=== PATIENT | male | born 1985 | race Caucasian/White ===

== ENCOUNTER 2023-07-01 09:17 | Emergency (ER) | payer BC, SELFPAY ==
[2023-07-01 09:30] VITALS: BP 134/90; PULSE 68; RESP 18; TEMP 36.6; O2SAT 100; BMI 23.6
[2023-07-01 09:52] VITALS: BP 134/90; PULSE 68; RESP 18; TEMP 36.6; O2SAT 100
--- NOTE | 2023-07-01 09:53 | EXP.UTC ---
Discharge Plan Disposition Patient Disposition: Home, Self-Care Condition: Good Prescriptions Prescriptions: New doxycycline hyclate 100 mg capsule 100 mg PO Q12H 10 Days Qty: 20 0RF Referrals Follow up/Referrals: Provider,Referral, MD [Primary Care Provider] - See instructions Activity Restrictions/Add. Instructions Additional Instructions/Restrictions: Due to multiple symptoms will treat with a full round of antibiotics. Please follow up with primary care provider. Clinical Impressions Clinical Impression: Tick bite of abdominal wall Qualifiers: Encounter type: initial encounter Qualified Code(s): S30.861A - Insect bite (nonvenomous) of abdominal wall, initial encounter Instructions Patient Instructions: Protect Yourself from Tickborne Illnesses, How to Remove a Tick, DI for Lyme Disease Discharge ED Provider: Samantha Robledo [facility] [place] General Stated complaint: tick bite/belly Mode of Arrival: Ambulatory Source of Information: Patient Limitations: No Limitations Time Seen by Provider: 07/01/23 09:43 Description of Symptoms (Recalled from Triage Doc. by RN): PATIENT REPORTS GETTING BIT BY A TICK ON HIS ABDOMEN APPROX 5 WEEKS AGO, AND FEELS LIKE HIS AXILLARY LYMPH NODES ARE SWOLLEN NOW HEENT Symptoms (Recalled from RN notes): No Resp Symptoms (Recalled from RN notes): No Skin Symptoms (Recalled from RN notes): No MS Symptoms (Recalled from RN notes): No Functional Status (Recalled from RN notes): WNL History of Present Illness Provider Complaint: Pt relates that he pulled a tick off his abdomen about 5-6 weeks ago. He relates that he did develop some redness around the site. He reports that he ran a fever about 2 weeks following the bite, but his children were sick as well at the time. He reports muscle aches and joint pain with the fever. He relates that he didn't think much of it, but started having a lymph node enlarge under his right axilla. Related Data Previous Rx's Medication Instructions Recorded doxycycline hyclate 100 mg capsule 100 mg PO Q12H 10 days #20 caps 07/01/23 Allergies Allergy/AdvReac Type Severity Reaction Status Date / Time No Known Allergies Allergy Verified 07/01/23 09:40 Worker's Comp Is this a Worker's Comp case?: No [facility] Disclaimer: The information contained in this section may have been updated after the patient was seen, as this information can be updated by other users. Medical History (Updated 07/01/23 @ 09:59 by Samantha Robledo APRN) No significant past medical history Social History Smoking Status: Never smoker alcohol intake: never current occupational status: employed Travel in the last 8 weeks: Inside the [place] ROS Obtained: Yes All systems reviewed & no additional complaints except as documented Constitutional Constitutional: Reports system reviewed and no additional complaints, except as documented, Reports body ache and Reports fever(s) Eyes Eyes: Reports system reviewed and no additional complaints, except as documented ENT Ears, Nose, Mouth, and Throat: Reports system reviewed and no additional complaints, except as documented Cardiovascular Cardiovascular: Reports system reviewed and no additional complaints, except as documented Respiratory Respiratory: Reports system reviewed and no additional complaints, except as documented Gastrointestinal Gastrointestingal: Reports system reviewed and no additional complaints, except as documented Genitourinary Male Genitourinary: Reports system reviewed and no additional complaints, except as documented Musculoskeletal Musculoskeletal: Reports system reviewed and no additional complaints, except as documented and Reports arthralgias Integumentary/Breasts Skin/Breast: Reports system reviewed and no additional complaints, except as documented and Reports redness Neurologic Neurologic: Reports system reviewed and no additional complaints, except as documented Endocrine Endocrine
== END 2023-07-01 10:03 | disposition home or self-care (01) ==
PROVIDERS: Emergency Provider Nurse Practitioner Family
DX: S30.861A Insect bite (nonvenomous) of abdominal wall, initial encounter (principal); W57.XXXA Bitten or stung by nonvenomous insect and other nonvenomous arthropods, initial encounter
CPT/HCPCS: 99204; 99212; G0463